=== PATIENT | female | born 1935 | race Caucasian/White ===

== ENCOUNTER 2016-06-25 11:25 | Emergency (ER) | payer MEDICARE, BC ==
[~2016-06-25] VITALS: Ht 134.6 cm; Wt 56.4 kg
[~2016-06-25 11:25] MED LIST: ADVIL200 MG PO; ASPIRIN 81M81 MG/TA2 PO; CLEOCIN HCL300 MG PO; FISH OIL1 POW; NORCO 325 MG-51 TAB PO
[2016-06-25 11:26] VITALS: BP 161/89; PULSE 83; TEMP 98.3
[2016-06-25] MEDS ORDERED: CELEXA10 MG PO (11:47)
[2016-06-25] MEDS ORDERED: VITAMIN D 50,1.25 MG PO (11:48)
[2016-06-25] MEDS ORDERED: FISH OIL 1000MG1 CAP PO (11:52)
[2016-06-25] MEDS ORDERED: MOTRIN 600600 MG/TAB PO (12:24)
== END 2016-06-25 12:33 | disposition home or self-care (01) ==
LOC: COL.ER 11:25
DX: S83.92XA Sprain of unspecified site of left knee, initial encounter (principal); W01.0XXA Fall on same level from slipping, tripping and stumbling without subsequent striking against object, initial encounter

== ENCOUNTER 2019-05-15 16:28 | Inpatient (IN) | payer MEDICARE, BC ==
[~2019-05-15] VITALS: Ht 152.4 cm; Wt 57.1 kg
[~2019-05-15 16:28] MED LIST changes: +CELEXA10 MG PO; +FISH OIL 1000MG1 CAP PO; +MOTRIN 600600 MG/TAB PO; +VITAMIN D 50,1.25 MG PO
[2019-05-15 17:00] LABS: HEMATOCRIT 42.8 % (37.0-47.0); HEMOGLOBIN 14.5 g/dl (12.5-16.0); MEAN CELL VOLUME 89 fl (80.0-100.0); MEAN CORPUSCULAR HEMOGLOBIN 30 pg (27.0-31.0); MEAN CORPUSCULAR HGB CONC 34 g/dl (33.0-37.0); PLATELET COUNT 137 K/mm3 (130-400); RED BLOOD COUNT 4.82 M/mm3 (4.10-5.30); REDCELL DISTRIBUTION WIDTH-CV 12.9 % (11.5-14.5)
[2019-05-15 17:06] LABS: ALBUMIN 4.1 gm/dL (3.5-5.0); BILIRUBIN,TOTAL 0.8 mg/dL (0.0-1.0); CALCIUM 8.2 mg/dL (8.4-10.2); CREATININE, serum 0.74 (0.52-1.25); POTASSIUM 4.2 mmol/L (3.4-5.0); TOTAL PROTEIN 7.5 gm/dL (6.4-8.2)
[2019-05-15 17:33] LABS: BAND 20 % (0-10); LYMPHOCYTE 27 % (20.0-51.0); NEUTROPHILS 49 % (42.0-75.2); PLATELET ESTIMATE DECREASED (NORMAL)
[2019-05-15 20:24] VITALS: BP 110/53; PULSE 66; TEMP 98.9
[2019-05-15 23:28] VITALS: BP 122/53; PULSE 65; TEMP 99.5
[2019-05-16 01:18] LABS: PROTHROMBIN TIME 11.8 SECONDS (9.7-12.8)
[2019-05-16 02:02] LABS: CREATININE, serum 0.64 (0.52-1.25); POTASSIUM 3.6 mmol/L (3.4-5.0)
[2019-05-16 02:14] LABS: TROPONIN-I 0.012 ng/mL (0.000-0.035)
[2019-05-16 03:02] LABS: COLLECTION METHOD CLEAN CATCH
[2019-05-16 03:08] LABS: PH 6 (5-8); SQUAMOUS EPITHELIAL 0-2 /hpf; URINE APPEARANCE Clear; URINE BACTERIA None Seen /hpf; URINE BILIRUBIN Negative (NEGATIVE); URINE BLOOD 1+ (NEGATIVE); URINE COLOR Straw; URINE GLUCOSE Negative (NEGATIVE); URINE KETONE Trace (NEGATIVE); URINE LEUKOCYTE ESTERASE Negative (NEGATIVE); URINE NITRATE Negative (NEGATIVE); URINE PROTEIN(semi-quant) Negative (NEGATIVE); URINE RBC 0-2 /hpf; URINE UROBILINOGEN Negative (NEGATIVE)
[2019-05-16 04:08] VITALS: BP 120/58; PULSE 69
--- NOTE | 2019-05-16 08:23 | NUR ---
Pt resting in bed. Pt alert to person and place but confused to place and situation. Pt denies pain or SOB. Pt states that she is thirsty this am. Pt has fall precautions in place. Pt remains on droplet precautions for parainfluenza virus. Pt has call light in reach. Pt IV patent no redness or infiltration with fluids running per orders.
[2019-05-16 08:26] LABS: HEMATOCRIT 39.9 % (37.0-47.0); HEMOGLOBIN 13.3 g/dl (12.5-16.0); MEAN CELL VOLUME 91 fl (80.0-100.0); MEAN CORPUSCULAR HEMOGLOBIN 30 pg (27.0-31.0); MEAN CORPUSCULAR HGB CONC 33 g/dl (33.0-37.0); MEAN PLATELET VOLUME 9.7 fl (7.4-10.4); PLATELET COUNT 129 K/mm3 (130-400); RED BLOOD COUNT 4.39 M/mm3 (4.10-5.30); REDCELL DISTRIBUTION WIDTH-CV 13.2 % (11.5-14.5)
[2019-05-16 08:43] LABS: ALBUMIN 3.2 gm/dL (3.5-5.0); BILIRUBIN,TOTAL 0.5 mg/dL (0.0-1.0); CALCIUM 7.7 mg/dL (8.4-10.2); CREATININE, serum 0.59 (0.52-1.25); POTASSIUM 3.6 mmol/L (3.4-5.0); TOTAL PROTEIN 6.1 gm/dL (6.4-8.2)
[2019-05-16 08:48] VITALS: BP 122/48; PULSE 73
[2019-05-16 09:20] LABS: BAND 12 % (0-10); NEUTROPHILS 29 % (42.0-75.2)
[2019-05-16 09:22] LABS: PLATELET ESTIMATE NORMAL (NORMAL)
[2019-05-16 09:23] LABS: LYMPHOCYTE 55 % (20.0-51.0)
[2019-05-16 11:21] VITALS: BP 114/39; PULSE 69
[2019-05-16 15:51] VITALS: BP 123/54; PULSE 78; TEMP 100.1
--- NOTE | 2019-05-16 16:10 | NUR ---
Pt alert to person but remains confused to time and place. Pt has fall precautions in place and bed alarm on. Pt does not call for help when needs to get up so bed alarm very important. Pt located across from nurse station as well. Pt denies pain, SOB, or needs at this time. Pt has not had immunization but has diagnosis of parainfluenza. Pt consented to flu vaccination this afternoon with grandson present. Pt fluids discontinued per Dr. Ricks.
--- NOTE | 2019-05-16 18:36 | NUR ---
Pt had an episode of anxiety and crying and pulled out her IV. Pt reoriented and calmed. Pt's family had left for awhile. Pt's daughter here now and plans to stay the night. New IV started 22g in LF with 1 attempt. Pt has fall precautions in place and droplet precautions in place.
[2019-05-16 19:34] VITALS: BP 113/61; PULSE 80; TEMP 97.4
[2019-05-16 23:29] VITALS: BP 132/59; PULSE 66; TEMP 98.7
[2019-05-17 04:05] VITALS: BP 127/48; PULSE 59; TEMP 98.1
[2019-05-17 07:17] VITALS: BP 143/55; PULSE 62; TEMP 98.6
--- NOTE | 2019-05-17 09:38 | NUR ---
KAY met with the patient and the patient's grandson, Art Kinney (ph#[phone]), to discuss discharge plan. The patient lives alone in [place]. Art reports that he lives right next door to her. The patient reports independence with ADLs and does not have any DME. She denies having any home health services. The patient's PCP is Dr. Zacarias Gaspar and she receives her medications at [facility] or [facility]. Art reports no difficulties obtaining her meds. The patient does not have advanced directives in EMR, but Art states that she does have them completed and at home. He states that him and his mother, Dejon Kinney, are the patient's DPOA-HC. He states that his mother is not very helpful though. The patient plans to return home upon discharge. She had no other questions or concerns for SW. No additional needs at this time, but SW to continue to follow.
[2019-05-17 09:43] LABS: HEMATOCRIT 39.4 % (37.0-47.0); HEMOGLOBIN 13.1 g/dl (12.5-16.0); MEAN CELL VOLUME 91 fl (80.0-100.0); MEAN CORPUSCULAR HEMOGLOBIN 30 pg (27.0-31.0); MEAN CORPUSCULAR HGB CONC 33 g/dl (33.0-37.0); MEAN PLATELET VOLUME 9.6 fl (7.4-10.4); PLATELET COUNT 134 K/mm3 (130-400); RED BLOOD COUNT 4.34 M/mm3 (4.10-5.30); REDCELL DISTRIBUTION WIDTH-CV 13.3 % (11.5-14.5)
[2019-05-17 09:55] LABS: ALBUMIN 3.4 gm/dL (3.5-5.0); BILIRUBIN,TOTAL 0.4 mg/dL (0.0-1.0); CALCIUM 8.2 mg/dL (8.4-10.2); CREATININE, serum 0.66 (0.52-1.25); POTASSIUM 3.7 mmol/L (3.4-5.0); TOTAL PROTEIN 6.6 gm/dL (6.4-8.2)
[2019-05-17 10:38] LABS: BAND 9 % (0-10); LYMPHOCYTE 53 % (20.0-51.0); NEUTROPHILS 37 % (42.0-75.2)
[2019-05-17 10:39] LABS: PLATELET ESTIMATE NORMAL (NORMAL)
[2019-05-17 11:28] VITALS: BP 139/55; PULSE 59; TEMP 99
[2019-05-17 15:40] VITALS: BP 121/55; PULSE 90; TEMP 98
--- NOTE | 2019-05-17 19:42 | NUR ---
Pt remains confused but alert to person. Pt IV patent and no infiltration this am. Pt stable this am. Pt became increasing anxiety after family left. Pt given shower with assist. Pt became more anxious and paranoid. Pt keeps her purse at her side because she is afraid someone is going to steal it and as well as family steal it so cannot send it home with grandson. Pt pulled out IV in in left forearm. New IV started in Lupper arm. IV patent. Pt up and walking halls d/t agitation. Pt able to be redirected after some time back to her room by nurse. Pt has had fall precautions in place and bed alarm on at all times. Pt resting in bed now with grandson at bedside. PRN Seroquel given for confusion and anxiety. Pt has call light in reach. Pt remains on droplet precautions.
[2019-05-17 20:08] VITALS: BP 138/59; PULSE 87; TEMP 99.1
[2019-05-17 23:25] VITALS: BP 130/60; PULSE 72; TEMP 98.1
[2019-05-18 04:05] VITALS: BP 137/65; PULSE 67; TEMP 98.2
[2019-05-18 07:11] LABS: HEMATOCRIT 38.8 % (37.0-47.0); HEMOGLOBIN 12.7 g/dl (12.5-16.0); MEAN CELL VOLUME 91 fl (80.0-100.0); MEAN CORPUSCULAR HEMOGLOBIN 30 pg (27.0-31.0); MEAN CORPUSCULAR HGB CONC 33 g/dl (33.0-37.0); MEAN PLATELET VOLUME 9.4 fl (7.4-10.4); PLATELET COUNT 148 K/mm3 (130-400); RED BLOOD COUNT 4.28 M/mm3 (4.10-5.30); REDCELL DISTRIBUTION WIDTH-CV 13.2 % (11.5-14.5)
[2019-05-18 07:29] LABS: ALBUMIN 3.4 gm/dL (3.5-5.0); BILIRUBIN,TOTAL 0.5 mg/dL (0.0-1.0); CALCIUM 8.4 mg/dL (8.4-10.2); CREATININE, serum 0.62 (0.52-1.25); POTASSIUM 3.5 mmol/L (3.4-5.0); TOTAL PROTEIN 6.5 gm/dL (6.4-8.2)
[2019-05-18 07:34] VITALS: BP 130/102; BP 132/72; PULSE 64; TEMP 98.6
[2019-05-18 08:06] LABS: BAND 6 % (0-10); LYMPHOCYTE 51 % (20.0-51.0); NEUTROPHILS 41 % (42.0-75.2); PLATELET ESTIMATE NORMAL (NORMAL)
--- NOTE | 2019-05-18 08:10 | NUR ---
Patient is awake and alert in room. She is sitting up in bed. States she has no pain. Is alert and oriented at this time. Does request to take a shower sometime this morning. Respirations are even and nonlabored. Has repositioned self in bed independently. Fresh ice water provided. Call light and personal items are within reach.
[2019-05-18] MEDS ORDERED: OMNICEF 300MG300 MG PO (11:22)
[2019-05-18] MEDS ORDERED: PROAIR HFA0.09 MG/AC IH (11:23)
--- NOTE | 2019-05-18 13:24 | NUR ---
Discharge instructions reviewed with family and patient. Family stated they would call for follow up appointment for patient in one week and will call for radiology follow up to admissions to the hospital. IV removed, telemetry discontinued and influenza vaccine administered. Personal belongings gathered and patient assisted to private vehicle via wheelchair. Discharged at 1220.
== END 2019-05-18 12:20 | disposition home or self-care (01) | DRG 871 ==
LOC: COL.ER 16:28 → MEDICAL 19:23
PROVIDERS: Emergency Medicine; Nurse Practitioner Family; ADMIT Student in an Organized Health Care Education/Training Program
DX: A41.9 Sepsis, unspecified organism (principal); J18.9 Pneumonia, unspecified organism; E87.1 Hypo-osmolality and hyponatremia; G93.49 Other encephalopathy; E44.0 Moderate protein-calorie malnutrition; I10 Essential (primary) hypertension; F03.90 Unspecified dementia, unspecified severity, without behavioral disturbance, psychotic disturbance, mood disturbance, and anxiety; E87.8 Other disorders of electrolyte and fluid balance, not elsewhere classified; B34.8 Other viral infections of unspecified site
CPT/HCPCS: 99222-AI; 99232-AI; 99239; A4216; J0456; J0696; J1650; J7030; J7050

== ENCOUNTER 2020-06-27 14:58 | Emergency (ER) | payer MEDICARE, BC ==
[~2020-06-27] VITALS: Ht 152.4 cm; Wt 59.1 kg
[~2020-06-27 14:58] MED LIST changes: +OMNICEF 300MG300 MG PO; +PROAIR HFA0.09 MG/AC IH
[2020-06-27 15:09] VITALS: TEMP 97.8
[2020-06-27 15:38] LABS: HEMOGLOBIN 11.9 g/dl (12.5-16.0); MEAN CELL VOLUME 90 fl (80.0-100.0); MEAN CORPUSCULAR HEMOGLOBIN 30 pg (27.0-31.0); MEAN CORPUSCULAR HGB CONC 33 g/dl (33.0-37.0); MEAN PLATELET VOLUME 8.6 fl (7.4-10.4); PLATELET COUNT 256 K/mm3 (130-400); REDCELL DISTRIBUTION WIDTH-CV 12.4 % (11.5-14.5)
[2020-06-27 16:01] LABS: ALBUMIN 3.8 gm/dL (3.5-5.0); BILIRUBIN,TOTAL 0.9 mg/dL (0.0-1.0); C-REACTIVE PROTEIN 3.2 mg/dL (0.0-0.9); CALCIUM 8.6 mg/dL (8.4-10.2); CREATININE, serum 0.76 (0.52-1.25); TOTAL PROTEIN 7.2 gm/dL (6.4-8.2)
[2020-06-27 16:07] LABS: COLLECTION METHOD CLEAN CATCH
[2020-06-27 16:17] LABS: PH 7 (5-8); SQUAMOUS EPITHELIAL 0-2 /hpf; URINE APPEARANCE Clear; URINE BACTERIA None Seen /hpf; URINE BILIRUBIN Negative (NEGATIVE); URINE BLOOD 1+ (NEGATIVE); URINE COLOR Straw; URINE GLUCOSE Negative (NEGATIVE); URINE KETONE Negative (NEGATIVE); URINE LEUKOCYTE ESTERASE Trace (NEGATIVE); URINE NITRATE Negative (NEGATIVE); URINE PROTEIN(semi-quant) Negative (NEGATIVE); URINE RBC 0-2 /hpf
[2020-06-27 16:22] LABS: INR 1.1 (0.8-3.0); PROTHROMBIN TIME 11.9 SECONDS (9.7-12.8)
[2020-06-27 17:14] LABS: BAND 1 % (0-10); EOSINOPHIL 1 % (0-4); LYMPHOCYTE 56 % (20.0-51.0); NEUTROPHILS 37 % (42.0-75.2)
[2020-06-27 17:19] LABS: PLATELET ESTIMATE NORMAL (NORMAL)
[2020-06-27 19:40] VITALS: BP 169/110; PULSE 71
== END 2020-06-27 19:40 | disposition short-term general hospital (02) ==
LOC: COL.ER 14:58
PROVIDERS: Family Medicine
DX: I62.00 Nontraumatic subdural hemorrhage, unspecified (principal); Z20.822 Contact with and (suspected) exposure to COVID-19
CPT/HCPCS: J2060

== ENCOUNTER → 2020-07-13 | Outpatient (CLI) | payer MEDICARE, BC | LOC: COL.RAD 14:40 | DX: S06.5X9A Traumatic subdural hemorrhage with loss of consciousness of unspecified duration, initial encounter (principal) ==